=== PATIENT | male | born 1990 | race Caucasian/White ===

== ENCOUNTER 2022-06-24 11:04 | Emergency (ER) | payer OTHER, SELFPAY ==
[2022-06-24 11:06] VITALS: BP 132/87; PULSE 74; RESP 16; TEMP 36.3; O2SAT 100; BMI 22.0
[2022-06-24] MEDS: Diphth,Pertuss(Acell),Tet Vac 0.5 ML Vial IM (12:18)
[2022-06-24] MEDS: Lidocaine 1% (20 ml mdv) 20 ML Vial INFILT (12:18)
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
== END 2022-06-24 14:40 | disposition home or self-care (01) ==
PROVIDERS: Emergency Provider Emergency Medicine; PCP Family Medicine; Visit Provider Emergency Medicine
DX: S81.811A Laceration without foreign body, right lower leg, initial encounter (principal); F17.210 Nicotine dependence, cigarettes, uncomplicated; X58.XXXA Exposure to other specified factors, initial encounter
CPT/HCPCS: 12001; 90715; 96372; 99282